=== PATIENT | female | born 1940 | race Caucasian/White ===

== ENCOUNTER 2020-12-18 08:39 | Emergency (ER) | payer MEDICARE ==
[~2020-12-18] VITALS: Ht 167.6 cm; Wt 59.9 kg
[~2020-12-18 08:39] MED LIST: HYDR-4353 PO; NO HOME MEDS
[2020-12-18] MEDS ORDERED: propofol 10mg/ml 20ml vial IV ONE (09:30)
--- NOTE | 2020-12-18 09:53 | NUR ---
going on break. diprivan bottle of 200mg given to nurse Denise for moderate sedation and ankle reduction.
--- NOTE | 2020-12-18 10:07 | NUR ---
PT SON RADHA CALLED [phone]. WOULD LIKE TO BE CALLED WHEN PT IS READY TO GO HOME.
--- NOTE | 2020-12-18 10:10 | NUR ---
RADHA CALLED AGAIN. WANTED TO MAKE SURE WE KNEW THAT SHE HAD FALLEN AND WAS A LITTLE DIZZY. INFORMED HIM WE DID KNOW AND EKG, LABS WERE DRAWN.
[2020-12-18 10:11] LABS: BASOPHILS % (AUTO) 0.2 % (0-1); EOSINOPHILS % (AUTO) 0.1 % (0-6); HEMATOCRIT 38.4 % (35.0-45.0); LYMPHOCYTES # (AUTO) 0.6 X10'3 (1.1-4.8); LYMPHOCYTES % (AUTO) 5.9 % (21-51); MEAN CORPUSCULAR HEMOGLOBIN 31.5 PG (27.0-31.0); MEAN CORPUSCULAR HGB CONC 33.7 g/dL (33.0-36.5); MEAN CORPUSCULAR VOLUME 93.3 FL (78-98); MONOCYTES # (AUTO) 0.4 X10'3 (0-0.9); MONOCYTES % (AUTO) 4.2 % (2-12); NEUTROPHILS # (AUTO) 9.1 X10'3 (1.8-7.7); NEUTROPHILS % (AUTO) 89.6 % (42-75); PLATELET COUNT 227 X10'3 (140-440); RED BLOOD COUNT 4.11 X10'6 (4.20-5.60); RED CELL DISTRIBUTION WIDTH 13.8 % (11.5-14.5); WHITE BLOOD COUNT 10.1 X10'3 (4.5-11.0)
[2020-12-18 10:22] LABS: ALANINE AMINOTRANSFERASE 27 U/L (12-78); ALBUMIN 3.5 G/DL (3.4-5.0); ALBUMIN/GLOBULIN RATIO 1.1 (1.1-1.5); ALKALINE PHOSPHATASE 58 IU/L (46-116); ANION GAP 6 (8-16); ASPARTATE AMINO TRANSFERASE 19 U/L (10-37); BILIRUBIN,TOTAL 0.7 MG/DL (0.1-1.0); BLOOD UREA NITROGEN 18 MG/DL (7-18); BUN/CREATININE RATIO 18.4 (6.6-38.0); CALCIUM 8.9 MG/DL (8.5-10.1); CHLORIDE 110 MMOL/L (99-107); CREATININE 0.98 MG/DL (0.40-0.90); GLUCOSE 127 MG/DL (70-104); POTASSIUM 3.8 MMOL/L (3.5-5.1); SODIUM 145 MMOL/L (135-145); TOTAL CARBON DIOXIDE 28.9 MMOL/L (24-32); TOTAL PROTEIN 6.8 G/DL (6.4-8.2); eGFR 55 ML/MIN
[2020-12-18] MEDS ORDERED: HYDR-3972 PO (10:26)
[2020-12-18] MEDS ORDERED: morphine 4 MG/ML inj SYRINge IV ONE (10:45)
[2020-12-18] MEDS ORDERED: HYDROcodone/acetaminophen 10/325mg tab PO ONE (10:45)
[2020-12-18] MEDS ORDERED: HYDROcodone/acetaminophen 5mg/325mg tablet PO ONE (10:55)
[2020-12-18 11:11] VITALS: BP 112/62
== END 2020-12-18 11:09 | disposition home or self-care (01) ==
LOC: ER 08:40
DX: S82.842A Displaced bimalleolar fracture of left lower leg, initial encounter for closed fracture (principal); Z90.49 Acquired absence of other specified parts of digestive tract; Z79.899 Other long term (current) drug therapy; X50.1XXA Overexertion from prolonged static or awkward postures, initial encounter; Y93.F9 Activity, other caregiving; Y92.89 Other specified places as the place of occurrence of the external cause; Y99.8 Other external cause status
CPT/HCPCS: 27810; 36415; 73600; 73610; 80053; 85025; 93005; 94799; 99152; 99285; J2704

== ENCOUNTER 2020-12-28 12:34 | Observation (INO) | payer MEDICARE, OTHER ==
[2020-12-28] VITALS (16 sets, daily range): BP systolic 102–184; BP diastolic 57–91
[~2020-12-28] VITALS: Ht 167.6 cm; Wt 65.0 kg
[~2020-12-28 12:34] MED LIST changes: -HYDR-4353 PO; +ceFAZolin 2gm in dextrose, iso 50 ML IV ONE; +famotidine 20mg tablet PO ONE
[2020-12-28] MEDS: ringers solution, lacted 1,000 ML IV SCH ×2 (13:37→22:20)
[2020-12-28] MEDS ORDERED: BUPIVAcaine/PF 2.5 mg/ml (0.25%) 30ml vial ONE (14:25)
[2020-12-28] MEDS ORDERED: sevoflurane 250ml liquid IH ONE (17:28)
[2020-12-28] MEDS ORDERED: fentaNYL/PF 50MCG/1 ML 2ML syringe ONE ×2 (17:32→18:14)
[2020-12-28] MEDS ORDERED: ROPIVAcaine 0.5% (5mg/ml) 30ml vial ONE (17:38)
[2020-12-28] MEDS ORDERED: propofol inj 20 ML IV ONE (17:38)
[2020-12-28] MEDS ORDERED: ondansetron/PF 4mg/2ml inj IV PRN ×2 (18:40→19:45)
[2020-12-28] MEDS ORDERED: morphine 2 MG/ML inj. syringe IV PRN (18:40)
[2020-12-28] MEDS ORDERED: meperidine/PF 25mg/ml syringe IV PRN ×2 (18:40)
[2020-12-28] MEDS ORDERED: ringers solution, lacted 1,000 ML IV SCH (18:40)
[2020-12-28] MEDS ORDERED: proCHLORperazine 10 MG/2 ml inj IV PRN (18:40)
[2020-12-28] MEDS ORDERED: acetaminophen 1,000mg/100ml IV 100 ML IV ONE (18:50)
[2020-12-28] MEDS ORDERED: ondansetron/PF 4mg/2ml inj ONE (19:00)
[2020-12-28] MEDS ORDERED: dexamethasone sod phosphate 4mg/ml inj. ONE (19:01)
--- NOTE | 2020-12-28 19:12 | NUR ---
Received from OR via [facility], accompanied by Anestheologist Vicki and report given by Anesthesiolgist. Pt sleepy but responsive. VS stable and mask on at 10L sats 100%. Left ankle wrapped with splint and toes exposed, pink toes good cap refill. 20G left forearm IVF LR at 100cc/hr.
[2020-12-28] MEDS: meperidine/PF 25mg/ml syringe IV PRN ×3 (19:28→20:13)
[2020-12-28] MEDS: morphine 4 MG/ML inj SYRINge IV PRN ×2 (19:42→20:08)
[2020-12-28] MEDS ORDERED: HYDROmorphone 1 mg/ml syringe IV PRN (19:45)
[2020-12-28] MEDS ORDERED: HYDROcodone/acetaminophen 10/325mg tab PO PRN ×2 (19:45)
[2020-12-28] MEDS ORDERED: HYDROmorphone inj. 0.5 MG/0.5 ML DISP.SYRIN IV PRN (19:45)
[2020-12-28] MEDS ORDERED: potassium cl 20mEq in 1/2 NS 1,000 ML IV SCH (19:45)
--- NOTE | 2020-12-28 20:22 | NUR ---
Report called to receiving nurse. Transferred via gurney then onto surgical bed with assistance by slide board without incident. Belongings sent with patient, two bags. Special Issues communicated to receiving nurse WENDY Pederson. Pt alert and responsive. Toes remain with good cap refill. Wedge pillow sent with patient for discharge tomorrow. BLL call light within reach.
[2020-12-29] VITALS: BP 117/69
[2020-12-29 00:45] VITALS: BP 100/56
[2020-12-29] MEDS: ceFAZolin/D5W- 1GM premix 50 ML IV SCH ×2 (00:56→00:57)
[2020-12-29 02:11] VITALS: BP 117/69
--- NOTE | 2020-12-29 06:57 | NUR ---
Patient in room [facility]. I have received report from Dacia NGUYEN and had the opportunity to ask questions and assume patient care.
[2020-12-29 08:00] VITALS: BP 125/53
--- NOTE | 2020-12-29 12:25 | NUR ---
Pt DC to home with and son. Pt is A & Ox4 and in no apparent distress. Pt verbalizes understanding of all Dc orders and follow with Dr Cade and PCP. Pt worked with PT and was able to move around with FWW without a problem. Pt able to teach back instructions of how to move around and the importance of non -weight bearing issue. Pt's IV cath was removed intact. pt's belogings were packed and carried out to the front where her son picked him up.
== END 2020-12-29 12:28 | disposition home or self-care (01) ==
LOC: PAS 12:34 → SUR 3N 19:41
PROVIDERS: ADMIT Orthopaedic Surgery; ATTEND Orthopaedic Surgery
DX: S82.842A Displaced bimalleolar fracture of left lower leg, initial encounter for closed fracture (principal); M79.662 Pain in left lower leg; Z20.822 Contact with and (suspected) exposure to COVID-19; W18.39XA Other fall on same level, initial encounter; Y93.89 Activity, other specified; Y92.89 Other specified places as the place of occurrence of the external cause
CPT/HCPCS: 27814; 36415; 82948; 87426; 96365; 96375; 96376; 97110; 97116; 97162; 97530; C1713; G0378; J0131; J0690; J1100; J2175; J2270; J2405; J2704; J3010; J3490; 96361; A4618; A6449; A7000; J2795; J3480; J7120

== ENCOUNTER 2024-02-20 10:39 | Inpatient (IN) | payer MEDICARE ==
[~2024-02-20] VITALS: Ht 167.6 cm; Wt 75.0 kg
[~2024-02-20 10:39] MED LIST changes: -ceFAZolin 2gm in dextrose, iso 50 ML IV ONE; -famotidine 20mg tablet PO ONE
[2024-02-20 11:47] LABS: EOSINOPHILS # (AUTO) 0.1 X10'3 (0-0.9); EOSINOPHILS % (AUTO) 0.8 % (0-6); HEMOGLOBIN 11.1 g/dl (12.0-16.0)
[2024-02-20 11:51] LABS: BASOPHILS # (AUTO) 0.1 X10'3 (0-0.2); BASOPHILS % (AUTO) 0.4 % (0-1); HEMATOCRIT 33.2 % (35.0-45.0); LYMPHOCYTES # (AUTO) 0.8 X10'3 (1.1-4.8); LYMPHOCYTES % (AUTO) 4.9 % (21-51); MEAN CORPUSCULAR HEMOGLOBIN 30.4 PG (27.0-31.0); MEAN CORPUSCULAR HGB CONC 33.4 g/dL (33.0-36.5); MEAN PLATELET VOLUME 8.5 FL (7.4-10.4); MONOCYTES % (AUTO) 6.4 % (2-12); NEUTROPHILS # (AUTO) 13.4 X10'3 (1.8-7.7); NEUTROPHILS % (AUTO) 87.5 % (42-75); PLATELET COUNT 448 X10'3 (140-440); RED BLOOD COUNT 3.64 X10'6 (4.20-5.60); RED CELL DISTRIBUTION WIDTH 13.1 % (11.5-14.5); WHITE BLOOD COUNT 15.3 X10'3 (4.5-11.0)
[2024-02-20] MEDS: normal saline 1000ML IV soln IVB ONE (12:26)
[2024-02-20 14:07] LABS: ALANINE AMINOTRANSFERASE 95 U/L (12-78); ALBUMIN 1.4 G/DL (3.4-5.0); ALBUMIN/GLOBULIN RATIO 0.3 (1.1-1.5); ALKALINE PHOSPHATASE 153 IU/L (46-116); ANION GAP 9 (8-16); ASPARTATE AMINO TRANSFERASE 63 U/L (10-37); BILIRUBIN,DIRECT 0.2 MG/DL (0-0.3); BILIRUBIN,TOTAL 0.5 MG/DL (0.1-1.0); BLOOD UREA NITROGEN 30 MG/DL (7-18); BUN/CREATININE RATIO 24.6 (10.0-20.0); CALCIUM 7.9 MG/DL (8.5-10.1); CHLORIDE 104 MMOL/L (99-107); CREATININE 1.22 MG/DL (0.40-0.90); GLUCOSE 120 MG/DL (70-104); POTASSIUM 3.4 MMOL/L (3.5-5.1); SODIUM 138 MMOL/L (135-145); TOTAL CARBON DIOXIDE 25.2 MMOL/L (24-32); TOTAL PROTEIN 6.1 G/DL (6.4-8.2); eCRCL 33 ML/MIN; eGFR 42 ML/MIN
[2024-02-20 15:11] LABS: BILIRUBIN,URINE SMALL (Neg); CLARITY,URINE SLIGHTLY CLOUDY (Clear); COLOR,URINE YELLOW (Yellow); GLUCOSE, URINE NEGATIVE (Neg); KETONES,URINE NEGATIVE (Neg); LEUKOCYTE ESTERASE ,URINE NEGATIVE (Neg); NITRITES, URINE NEGATIVE (Neg); OCCULT BLOOD,URINE MODERATE (Neg); PH,URINE 5.5 (4.8-8.0); PROTEIN,URINE 100 mg/dl (Neg); UROBILINOGEN,URINE 0.2 E.U/dL (0.2-1.0)
[2024-02-20 15:14] LABS: UA COLLECTION TYPE URINAL
[2024-02-20 15:45] LABS: SQUAMOUS EPITHELIAL CELL,UR MANY /LPF (FEW)
[2024-02-20 15:46] LABS: BACTERIA,URINE FEW /HPF (Neg); RBC,URINE 0-2 /HPF (0-2)
[2024-02-20] MEDS: CefTRIAXone/D5W-Rocephin 1gm 50 ML IV ONE (15:59)
[2024-02-20] MEDS: normal saline 1000ml 1,000 ML IV ONE (15:59)
[2024-02-20] MEDS ORDERED: magnesium 2GM in 50ml NS 50 ML IV PRN (17:05)
[2024-02-20] MEDS ORDERED: magnesium 4gm in 100ml NS 100 ML IV PRN (17:05)
[2024-02-20] MEDS ORDERED: HYDROmorphone inj. 0.5 MG/0.5 ML DISP.SYRIN IV PRN (17:05)
[2024-02-20] MEDS ORDERED: magnesium hydroxide 30ml (MOM) UD suspension PO PRN (17:05)
[2024-02-20] MEDS ORDERED: mag hydrox/Alum hydrox/simeth 30ml oral suspension PO PRN (17:05)
[2024-02-20] MEDS ORDERED: ondansetron/PF 4mg/2ml inj IV PRN (17:05)
[2024-02-20] MEDS ORDERED: potassium Cl 40MEQ/1/2NS 520ml 520 ML IV PRN (17:05)
[2024-02-20] MEDS ORDERED: HYDROmorphone/PF 0.2 MG/ML SYRINGE IV PRN (17:05)
[2024-02-20] MEDS ORDERED: potassium Cl 20 mEq SR tablet PO PRN (17:05)
[2024-02-20] MEDS: normal saline 1000ml 1,000 ML IV SCH (18:31)
[2024-02-20] MEDS: docusate sod 100mg capsule PO SCH (20:00)
[2024-02-20] MEDS ORDERED: OLANZapine 5mg rapidly disint. tablet PO SCH (21:00)
[2024-02-20 22:30] VITALS: BP 110/74; PULSE 110; RESP 16; TEMP 98.9; O2SAT 95
[2024-02-21] MEDS: heparin, porcine 5000 units/ml vial SQ SCH
[2024-02-21] MEDS: piperacillin/tazo 4.5gm/100ml 100 ML IV SCH
[2024-02-21 07:40] LABS: BASOPHILS % (AUTO) 0.3 % (0-1); EOSINOPHILS # (AUTO) 0.2 X10'3 (0-0.9); EOSINOPHILS % (AUTO) 1.8 % (0-6); HEMATOCRIT 30.1 % (35.0-45.0); HEMOGLOBIN 10.1 g/dl (12.0-16.0); LYMPHOCYTES # (AUTO) 1.2 X10'3 (1.1-4.8); LYMPHOCYTES % (AUTO) 8.8 % (21-51); MEAN CORPUSCULAR HEMOGLOBIN 30.3 PG (27.0-31.0); MEAN CORPUSCULAR HGB CONC 33.4 g/dL (33.0-36.5); MEAN CORPUSCULAR VOLUME 90.5 FL (78-98); MEAN PLATELET VOLUME 8.1 FL (7.4-10.4); NEUTROPHILS # (AUTO) 11.1 X10'3 (1.8-7.7); NEUTROPHILS % (AUTO) 82.1 % (42-75); PLATELET COUNT 430 X10'3 (140-440); RED BLOOD COUNT 3.33 X10'6 (4.20-5.60); RED CELL DISTRIBUTION WIDTH 12.9 % (11.5-14.5); WHITE BLOOD COUNT 13.6 X10'3 (4.5-11.0)
[2024-02-21 07:54] LABS: ALANINE AMINOTRANSFERASE 92 U/L (12-78); ALBUMIN 1.3 G/DL (3.4-5.0); ALBUMIN/GLOBULIN RATIO 0.3 (1.1-1.5); ALKALINE PHOSPHATASE 186 IU/L (46-116); ANION GAP 8 (8-16); ASPARTATE AMINO TRANSFERASE 72 U/L (10-37); BILIRUBIN,TOTAL 0.5 MG/DL (0.1-1.0); BLOOD UREA NITROGEN 24 MG/DL (7-18); BUN/CREATININE RATIO 22.2 (10.0-20.0); CHLORIDE 104 MMOL/L (99-107); CREATININE 1.08 MG/DL (0.40-0.90); GLUCOSE 113 MG/DL (70-104); POTASSIUM 3.3 MMOL/L (3.5-5.1); SODIUM 137 MMOL/L (135-145); eCRCL 37 ML/MIN; eGFR 48 ML/MIN
[2024-02-21] MEDS: K and/or MAG REPLACEMENT MC SCH (08:00)
[2024-02-21] MEDS: normal saline 500ml IV soln 500 ML IV ONE (08:24)
[2024-02-21] MEDS ORDERED: iohexol 300mg/ml 100ml inj. ONE (09:06)
[2024-02-21 10:00] VITALS: BP 137/59; PULSE 96; RESP 23; TEMP 101.8; O2SAT 96
[2024-02-21] MEDS: potassium Cl 20 mEq SR tablet PO PRN (10:49)
[2024-02-21] MEDS: acetaminophen 325mg tablet PO PRN (10:49)
[2024-02-21] MEDS ORDERED: NEO/POLY/DEX OP (15:45)
[2024-02-21] MEDS ORDERED: NEO/5DRO7 RIGHTEYE (15:45)
[2024-02-21] MEDS: neomycin/polymyxn B/dexameth ophth suspension 5ml RIGHTEYE SCH (17:00)
[2024-02-21 20:00] VITALS: RESP 16; O2SAT 97
[2024-02-21 22:00] VITALS: BP 149/63; PULSE 100; RESP 18; TEMP 98.8; O2SAT 96
[2024-02-22 03:21] LABS: BASOPHILS % (AUTO) 0.3 % (0-1); EOSINOPHILS # (AUTO) 0.4 X10'3 (0-0.9); EOSINOPHILS % (AUTO) 3.1 % (0-6); HEMATOCRIT 28.3 % (35.0-45.0); HEMOGLOBIN 9.4 g/dl (12.0-16.0); LYMPHOCYTES # (AUTO) 1.2 X10'3 (1.1-4.8); LYMPHOCYTES % (AUTO) 8.7 % (21-51); MEAN CORPUSCULAR HEMOGLOBIN 29.9 PG (27.0-31.0); MEAN CORPUSCULAR HGB CONC 33.2 g/dL (33.0-36.5); MEAN CORPUSCULAR VOLUME 90.3 FL (78-98); MEAN PLATELET VOLUME 7.9 FL (7.4-10.4); MONOCYTES % (AUTO) 6.9 % (2-12); NEUTROPHILS # (AUTO) 11.4 X10'3 (1.8-7.7); PLATELET COUNT 430 X10'3 (140-440); RED BLOOD COUNT 3.13 X10'6 (4.20-5.60); RED CELL DISTRIBUTION WIDTH 13.3 % (11.5-14.5)
[2024-02-22 03:46] LABS: ALANINE AMINOTRANSFERASE 108 U/L (12-78); ALBUMIN 1.2 G/DL (3.4-5.0); ALBUMIN/GLOBULIN RATIO 0.3 (1.1-1.5); ALKALINE PHOSPHATASE 182 IU/L (46-116); ANION GAP 8 (8-16); ASPARTATE AMINO TRANSFERASE 91 U/L (10-37); BILIRUBIN,TOTAL 0.6 MG/DL (0.1-1.0); BLOOD UREA NITROGEN 20 MG/DL (7-18); BUN/CREATININE RATIO 17.7 (10.0-20.0); CALCIUM 7.7 MG/DL (8.5-10.1); CHLORIDE 105 MMOL/L (99-107); CREATININE 1.13 MG/DL (0.40-0.90); GLUCOSE 114 MG/DL (70-104); POTASSIUM 3.9 MMOL/L (3.5-5.1); SODIUM 137 MMOL/L (135-145); TOTAL CARBON DIOXIDE 23.8 MMOL/L (24-32); TOTAL PROTEIN 5.8 G/DL (6.4-8.2); eCRCL 35 ML/MIN; eGFR 46 ML/MIN
[2024-02-22 06:00] VITALS: BP 152/79; PULSE 94; RESP 16; TEMP 97.8; O2SAT 93
[2024-02-22 09:00] VITALS: RESP 18; O2SAT 95
[2024-02-22 10:00] VITALS: BP 137/71; PULSE 93; RESP 20; TEMP 97.6; O2SAT 98
[2024-02-22 18:00] VITALS: BP 148/74; RESP 16; TEMP 98.1; O2SAT 99
[2024-02-22 20:00] VITALS: RESP 16; O2SAT 99
[2024-02-22 22:00] VITALS: BP 138/68; PULSE 95; RESP 16; TEMP 98.5; O2SAT 95
[2024-02-23] VITALS (8 sets, daily range): BP systolic 124–157; BP diastolic 67–74; PULSE 77–87; RESP 14–22; TEMP 97.2–98.8; O2SAT 90–96
[2024-02-23 08:01] LABS: BASOPHILS # (AUTO) 0.1 X10'3 (0-0.2); BASOPHILS % (AUTO) 0.4 % (0-1); EOSINOPHILS # (AUTO) 0.3 X10'3 (0-0.9); EOSINOPHILS % (AUTO) 2.2 % (0-6); HEMATOCRIT 28.1 % (35.0-45.0); HEMOGLOBIN 9.4 g/dl (12.0-16.0); LYMPHOCYTES # (AUTO) 1.1 X10'3 (1.1-4.8); MEAN CORPUSCULAR HEMOGLOBIN 30.2 PG (27.0-31.0); MEAN CORPUSCULAR HGB CONC 33.3 g/dL (33.0-36.5); MEAN CORPUSCULAR VOLUME 90.8 FL (78-98); MEAN PLATELET VOLUME 8.2 FL (7.4-10.4); MONOCYTES # (AUTO) 0.9 X10'3 (0-0.9); MONOCYTES % (AUTO) 6.5 % (2-12); NEUTROPHILS # (AUTO) 11.9 X10'3 (1.8-7.7); NEUTROPHILS % (AUTO) 82.9 % (42-75); PLATELET COUNT 435 X10'3 (140-440); RED CELL DISTRIBUTION WIDTH 13.3 % (11.5-14.5); WHITE BLOOD COUNT 14.4 X10'3 (4.5-11.0)
[2024-02-23 08:20] LABS: ALANINE AMINOTRANSFERASE 98 U/L (12-78); ALBUMIN 1.1 G/DL (3.4-5.0); ALBUMIN/GLOBULIN RATIO 0.2 (1.1-1.5); ALKALINE PHOSPHATASE 207 IU/L (46-116); ANION GAP 11 (8-16); ASPARTATE AMINO TRANSFERASE 77 U/L (10-37); BILIRUBIN,TOTAL 0.8 MG/DL (0.1-1.0); BLOOD UREA NITROGEN 19 MG/DL (7-18); BUN/CREATININE RATIO 15.8 (10.0-20.0); CALCIUM 7.6 MG/DL (8.5-10.1); CHLORIDE 106 MMOL/L (99-107); GLUCOSE 92 MG/DL (70-104); MAGNESIUM 1.9 MG/DL (1.5-2.4); POTASSIUM 3.6 MMOL/L (3.5-5.1); SODIUM 140 MMOL/L (135-145); TOTAL CARBON DIOXIDE 22.8 MMOL/L (24-32); TOTAL PROTEIN 5.7 G/DL (6.4-8.2); eCRCL 33 ML/MIN; eGFR 43 ML/MIN
[2024-02-23] MEDS ORDERED: iohexol 300mg/ml 100ml inj. ONE (12:40)
[2024-02-24 06:00] VITALS: BP 124/76; PULSE 90; RESP 16; TEMP 98.7; O2SAT 98
[2024-02-24 06:52] LABS: ALANINE AMINOTRANSFERASE 96 U/L (12-78); ALBUMIN/GLOBULIN RATIO 0.2 (1.1-1.5); ALKALINE PHOSPHATASE 205 IU/L (46-116); ANION GAP 10 (8-16); ASPARTATE AMINO TRANSFERASE 69 U/L (10-37); BILIRUBIN,TOTAL 0.7 MG/DL (0.1-1.0); BLOOD UREA NITROGEN 17 MG/DL (7-18); BUN/CREATININE RATIO 14.5 (10.0-20.0); CALCIUM 7.5 MG/DL (8.5-10.1); CHLORIDE 106 MMOL/L (99-107); CREATININE 1.17 MG/DL (0.40-0.90); GLUCOSE 99 MG/DL (70-104); MAGNESIUM 1.9 MG/DL (1.5-2.4); POTASSIUM 3.2 MMOL/L (3.5-5.1); SODIUM 140 MMOL/L (135-145); TOTAL CARBON DIOXIDE 24.1 MMOL/L (24-32); TOTAL PROTEIN 5.6 G/DL (6.4-8.2); eCRCL 34 ML/MIN; eGFR 44 ML/MIN
[2024-02-24 06:57] LABS: BASOPHILS # (AUTO) 0.1 X10'3 (0-0.2); BASOPHILS % (AUTO) 0.5 % (0-1); EOSINOPHILS # (AUTO) 0.4 X10'3 (0-0.9); HEMOGLOBIN 8.9 g/dl (12.0-16.0); LYMPHOCYTES # (AUTO) 1.1 X10'3 (1.1-4.8); LYMPHOCYTES % (AUTO) 7.9 % (21-51); MEAN CORPUSCULAR VOLUME 90.9 FL (78-98); MEAN PLATELET VOLUME 7.9 FL (7.4-10.4); MONOCYTES # (AUTO) 0.9 X10'3 (0-0.9); MONOCYTES % (AUTO) 6.9 % (2-12); NEUTROPHILS # (AUTO) 11.2 X10'3 (1.8-7.7); NEUTROPHILS % (AUTO) 81.7 % (42-75); PLATELET COUNT 434 X10'3 (140-440); RED BLOOD COUNT 2.98 X10'6 (4.20-5.60); RED CELL DISTRIBUTION WIDTH 13.2 % (11.5-14.5); WHITE BLOOD COUNT 13.7 X10'3 (4.5-11.0)
[2024-02-24 08:05] VITALS: RESP 16; O2SAT 98
[2024-02-24] MEDS ORDERED: potassium Cl 40MEQ/1/2NS 520ml 520 ML IV PRN (08:05)
[2024-02-24] MEDS ORDERED: magnesium 4gm in 100ml NS 100 ML IV PRN (08:05)
[2024-02-24] MEDS ORDERED: magnesium 2GM in 50ml NS 50 ML IV PRN (08:05)
[2024-02-24] MEDS ORDERED: potassium Cl 20 mEq SR tablet PO PRN (08:05)
[2024-02-24] MEDS: potassium Cl 20 mEq SR tablet PO PRN (08:44)
[2024-02-24 10:00] VITALS: BP 141/69; PULSE 89; RESP 16; TEMP 97.4; O2SAT 99
[2024-02-24] MEDS: levoFLOXACIN 500mg tablet PO SCH (11:29)
[2024-02-24] MEDS ORDERED: levoFLOXACIN 250mg tablet PO SCH (13:15)
[2024-02-24] MEDS ORDERED: LEVO-65 PO ×2 (15:49→16:22)
[2024-02-24] MEDS ORDERED: POTA-207 PO ×2 (15:49→16:22)
[2024-02-24] MEDS ORDERED: K and/or MAG REPLACEMENT MC SCH (20:00)
== END 2024-02-24 18:05 | disposition home health service (06) | DRG 871 ==
LOC: ER 10:39 → ED HOLD 17:09 → EDBEDREQ 21:53 → ORTHO 4S 22:52
PROVIDERS: ADMIT Family Medicine; ATTEND Family Medicine
PROC: BW251ZZ Computerized Tomography (CT Scan) of Chest, Abdomen and Pelvis using Low Osmolar Contrast (ICD-10-PCS; principal; 2024-02-21)
PROC: BW281ZZ Computerized Tomography (CT Scan) of Head using Low Osmolar Contrast (ICD-10-PCS; 2024-02-23)
PROC: CP1Z1ZZ Planar Nuclear Medicine Imaging of Musculoskeletal System, All using Technetium 99m (Tc-99m) (ICD-10-PCS; 2024-02-24)
DX: A41.9 Sepsis, unspecified organism (principal); J18.9 Pneumonia, unspecified organism; N17.9 Acute kidney failure, unspecified; R74.01 Elevation of levels of liver transaminase levels; D35.02 Benign neoplasm of left adrenal gland; D64.9 Anemia, unspecified; D49.1 Neoplasm of unspecified behavior of respiratory system; M89.8X8 Other specified disorders of bone, other site; K80.20 Calculus of gallbladder without cholecystitis without obstruction; Z20.822 Contact with and (suspected) exposure to COVID-19; E87.6 Hypokalemia; H70.91 Unspecified mastoiditis, right ear; H91.91 Unspecified hearing loss, right ear; Z80.42 Family history of malignant neoplasm of prostate; Z82.49 Family history of ischemic heart disease and other diseases of the circulatory system; Z90.49 Acquired absence of other specified parts of digestive tract
CPT/HCPCS: 36415; 70450; 71045; 71250; 71260; 74176; 74177; 78306; 80048; 80053; 80076; 81001; 82140; 83605; 83735; 84132; 84145; 85025; 87040; 87081; 87502; 87503; 87811; 96365; 97116; 97161; 97530; 99285; A9503; G0378; J0696; J1644; J2543; J3490; J7030; J7040; Q9967